=== PATIENT | female | born 1950 | race Caucasian/White ===

== ENCOUNTER 2024-08-09 13:14 | Outpatient (AMB) | payer MEDICARE, SELFPAY ==
--- NOTE | 2024-08-09 13:17 | A.OFFPC_ITS ---
Vital Signs 08/09/24 13:19 Height 5 ft 1.81 in Weight 149 lb 4 oz BMI 27.5 BP 120/64 Blood Pressure Location Lt brachial Position Sitting Pulse 101 H Pulse Source Pulse Oximeter Temp 97.3 F Temp Source Temporal Artery Scan Pulse Oximetry (%) 96 Oxygen Delivery Method Room Air Intake Visit Reasons: establish care Intake Note: Patient is a new patient here to establish care for Anxiety, Hx HTN, Cholesterol. Transferring care from Dr Bowen ([facility]) . Medical records have been requested and have not received. Requesting lab order. Model Maker Required: No General Merchandise Salesperson: Not Required per policy Accompanied by: Self / Same As Patient Allergies No Known Allergies Allergy (Verified 08/09/24 13:37) Medication List - Last Reconciled 08/09/24 by Radha Arango PA-C citalopram 40 mg PO DAILY Tobacco use date assessed: 08/09/24 Fall risk assessment: No Falls in past year Last assessed Fall Risk: 08/09/24 Dental Screening Dental Screen Date: 08/09/24 Did you have a dental visit in the last 12 months?: Yes Did you have a dental problem in the last 6 months where you did not have access to dental care?: No Was dental information given to patient?: Patient has dentist HPI establish care HPI Details 74 year old female coming to the office for the first time. She has a history of anxiety managed with citalopram, mild hypertension with generally normal readings, and previous treatment with Mounjaro resulting in adverse side effects. She expresses interest at re-initiating Mounjaro at a lower dose. She also monitors her blood pressure at home, with occasional high readings attributed to unreliable equipment. Despite seasonal allergies and occupational headaches, the patient stays active through work and social activities. mammogram: due colonoscopy: unsure of last date DEXA: due [facility] Medical History H/O mammogram Surgical History History of tooth extraction H/O tubal ligation History of partial colectomy H/O release of tendon H/O colonoscopy Family History Mother Cancer of lung Neoplasm of bone Father Cancer Brother High blood cholesterol Paternal Grandfather Cancer Social History Housing: House Alcohol intake: never Patient Tobacco Use Status: Former Tobacco user e-Cigarette/Vaping Use: Never Used Second Hand Smoke Exposure: Yes service: No Current occupational status: employed Current occupation: Nurse Cognitive needs: No Hearing needs: No Vision needs: Yes (Reading glasses) Questionnaire PHQ-9 Over the last 2 weeks, how often have you been bothered by any of the following problems? 1. Little interest or pleasure in doing things: not at all 2. Feeling down, depressed, or hopeless: not at all 3. Trouble falling or staying asleep, or sleeping too much: not at all 4. Feeling tired or having little energy: several days 5. Poor appetite or overeating: not at all 6. Feeling bad about yourself - or that you are a failure or have let yourself or your family down: not at all 7. Trouble concentrating on things, such as reading the newspaper or watching television: not at all 8. Moving or speaking so slowly that other people could have noticed. Or the opposite - being so fidgety or restless that you have been moving around a lot more than usual: not at all 9. Thoughts that you would be better off or of hurting yourself in some way: not at all Total score: 1 Depression Screening Interpretation: Positive Depression Screening Follow-up: Existing condition and In treatment Depression Screening Done: Yes Source: Developed by Drs. Leo Vargas, Nena Chacko, Vladislav Rivera and colleagues, with an educational nilson from [employer]. Thrive Questionnaire Date Thrive assessed: 08/09/24 I am a: Patient What is your living situation today?: I have a steady place to live Within the past 12 months, did the food you bought not last and you didn't have the money to get more?: Never true Within the past 12 months, did you worry whether your food would run out before you got money to buy more?: Never true Do you have trouble paying for medicines?: No Do you have trouble getting transportation to medical appointments?: No Do you have trouble paying your heating and electricity bill?: No Do you have trouble taking care of your child, family member or friend?: No Do you have trouble with day-to-day activities such as bathing, preparing meals, shopping, managing finances, etc.?: No Are you currently unemployed and looking for a job?: No Are you interested in more education?: I choose not to answer this question Please select the resources that you would like help with: None Currently or been in a relationship where the following occur: No concerns reported THRIVE Score: 0 AUDIT C Alcohol Use Questionnaire (AUDIT-C) 1. How often do you have a drink containing alcohol?: Never 3. How often do you have six or more drinks on one occasion?: Never Total Score: 0 LUANA-7 AMB Questionnaire LUANA-7 Date LUANA - 7 assessed: 08/09/24 Feeling nervous, anxious, or on edge: 0 = Not at all Not being able to stop or control worryin = Not at all Worrying too much about different things: 0 = Not at all Trouble relaxin = Not at all Being so restless that it is hard to sit still: 0 = Not at all Becoming easily annoyed or irritable: 0 = Not at all Feeling afraid as if something awful might happen: 0 = Not at all Total LUANA-7 score (0-4 normal; 5-9 mild; 10-14 moderate; 15-21 severe): 0 Source: Developed by Drs. Leo Vargas, Nena Chacko, Vladislav Rivera and colleagues, with an educational nilson from [employer]. LUANA-7 Assessment Billing LUANA-7 Assessment Tool: LUANA-7 Assessment 78321 Review of Systems Const Denies body aches, Denies chills, Denies fever(s), Reports headache(s) and Denies poor appetite Eyes Reports no additional complaints ENT Denies dizziness and Reports headache(s) Card Denies chest pain, Denies lightheadedness and Denies dyspnea Resp Denies cough and Denies dyspnea GI Denies abdominal pain, Denies nausea and Denies vomiting Reports no additional complaints Musc Reports no additional complaints and Denies abnormal gait Skin/Breast Reports system reviewed and no additional complaints, except as documented Neuro Denies abnormal gait, Denies dizziness and Reports headache(s) Psych Reports no additional complaints Physical exam (Primary Care) Vital Signs: Last Vital Signs Temp 97.3 F 08/09/24 13:19 Pulse 101 H 08/09/24 13:19 BP 120/64 08/09/24 13:19 Pulse Ox 96 08/09/24 13:19 Oxygen Delivery Method Room Air 08/09/24 13:19 BMI result Body Mass Index 27.5 Tobacco/Smoking Status: Tobacco use Status Tobacco use date assessed 08/09/24 08/09/24 13:19 Patient Tobacco Use Status Former Tobacco user 08/09/24 13:26 e-Cigarette/Vaping Use Never Used 08/09/24 13:19 PHQ-9: PHQ-9 Score PHQ-9: Total score 1 08/09/24 14:26 Depression Screening Interpretation: Positive Depression Screening Follow-up: Existing condition and In treatment Thrive Assessment: Date of Thrive Assessment Date Thrive assessed 08/09/24 08/09/24 13:19 Currently or been in a relationship where the following occur: No concerns reported Const General: cooperative, healthy appearing, comfortable and no acute distress Orientation/consciousness: patient oriented x3 HENMT Head: Yes normocephalic Ears: hearing grossly normal bilaterally General nose exam: Normal external nose present Eyes General: appearance normal, both eyes and all related structures Conjunctivae: conjunctivae normal Neck Neck: Yes full ROM and Yes no lymphadenopathy Resp Effort & Inspection: normal respiratory effort Auscultation: clear to auscultation bilaterally, no crackles, no rales, no rhonchi and no wheezes Cardio Rate: regular rate Rhythm: regular rhythm Skin General skin exam: no rashes or lesions noted Neuro General: patient oriented x3 Gait exam (Neuro): Normal gait present Extrem General: Yes normal to inspection, Yes full ROM and No edema Psych Affect: normal affect Attitude: cooperative Insight: Good insight present (Psych) Judgement: Good judgement present (Psych) Coding Level of Care Code New Pt Level 4 (01289) Diagnoses Depression F32.A Anxiety F41.9 Overweight (BMI 25.0-29.9) E66.3 Hypercholesterolemia E78.00 Hypertension I10 Insomnia G47.00 Additional Codes LUANA-7 Assessment Billing - LUANA-7 Assessment Tool: LUANA-7 Assessment 16386 ([id number]) Assessment & Plan Assessment & Plan (1) Depression: Code(s): F32.A - Depression, unspecified Category: Medical Plan: Patient does endorse history of depression. She feels her symptoms are well managed on the Citalopram at this time and is declining med adjustments or counseling at this time. (2) Anxiety: Code(s): F41.9 - Anxiety disorder, unspecified Category: Medical Plan: See above (3) Overweight (BMI 25.0-29.9): Code(s): E66.3 - Overweight Category: Medical Plan: Healthy diet and regular exercise is encouraged. Patient was previously prescribed Mounjaro by her last PCP plan to reinitiate at a lower dose. I did discuss with patient if the Mounjaro is not approved by insurance she will not be a candidate for weight management. (4) Hypercholesterolemia: Comment: hx of Atorvastatin use Code(s): E78.00 - Pure hypercholesterolemia, unspecified Category: Medical Plan: Avoid foods that are high in cholesterol such as red meat, fried foods, eggs and baked goods. Triglyceride goal of less than 150 and LDL goal of less than 130. Previously treated with the atorvastatin but has been without the medication for 1 year. Ordered for updated blood work (5) Hypertension: Code(s): I10 - Essential (primary) hypertension Category: Medical Plan: Patient previously on medical management for blood pressure and has been without for 1 year. She does monitor her blood pressures at home which have been within the normal range less than 140/90. Continue to monitor at this time. Avoid salt intake and encourage healthy diet and regular exercise. (6) Insomnia: Code(s): G47.00 - Insomnia, unspecified Category: Medical Plan: Avoid the use of caffeine close to bedtime and practice good sleep hygiene. Plan to start on Benadryl as needed for sleep. Plan The patient will continue on citalopram for anxiety management, and we will ensure blood pressure is regularly monitored with reliable equipment due to previous hypertensive readings. For weight management, the patient may trial Wegovy or Mounjaro at a lower dosage, provided insurance approves coverage. Seasonal allergies and headache management remain supportive as symptoms arise. We discussed updating the bone density scan and mammogram schedule aligning with the patient?s preventive screening timeline. The introduction of hydroxyzine as a sleep aid, considering the interaction with citalopram, was explored, although Benadryl remains an option. Regular follow-up is encouraged to assess medication efficacy, side effects, and overall health maintenance strategies. This note was constructed using voice recognition software. While every effort has been made to ensure accuracy and prekindergarten teacher, still areas may have been included sometimes these areas may affect the content or meeting of the given symptoms. Total time spent caring for the patient today was 30 minutes. This includes time spent before the visit reviewing the chart, time spent during the visit, and time spent after the visit and documentation. Patient was informed and verbally consented to the use of an ambient scribe for clinic note docu mentation during this visit. Orders: Orders Complete Blood Count Auto Diff Today Z00.00 - Encounter for general adult medical examination without abnormal findings TSH reflex Free T4 Today Z00.00 - Encounter for general adult medical examination without abnormal findings Free T4 (Free Thyroxine) Today Z00.00 - Encounter for general adult medical examination without abnormal findings B Type Natriuretic Peptide Today I10 - Essential (primary) hypertension MM tomosynthesis screening BI Today Z12.31 - Encounter for screening mammogram for malignant neoplasm of breast Comprehensive Met. Panel Today Z00.00 - Encounter for general adult medical examination without abnormal findings Vitamin B12 and Folate Today Z00.00 - Encounter for general adult medical examination without abnormal findings Vitamin D 25-OH Total Today Z00.00 - Encounter for general adult medical examination without abnormal findings Lipid Panel Today E78.00 - Pure hypercholesterolemia, unspecified Hemoglobin A1c Today Z13.1 - Encounter for screening for diabetes mellitus XR DEXA axial skeleton Today Z78.0 - Asymptomatic menopausal state Medications: New tirzepatide (Mounjaro) for 4 weeks 2.5 mg (0.5 mL) subcut QWEEK 2 mL 0RF diphenhydramine HCl (Benadryl Allergy) 25 mg PO BEDTIME PRN 30 tabs 0RF sleep
[2024-08-09 13:19] VITALS: BP 120/64; PULSE 101; TEMP 36.3; O2SAT 96; BMI 27.5
== END 2024-08-09 14:06 | disposition home or self-care (01) ==
LOC: HO.HMCH 13:15
DX: F32.A Depression, unspecified (principal); F41.9 Anxiety disorder, unspecified; E66.3 Overweight; E78.00 Pure hypercholesterolemia, unspecified; I10 Essential (primary) hypertension; G47.00 Insomnia, unspecified

== ENCOUNTER → 2024-08-09 13:14 | Outpatient (BNVA) | payer MEDICARE, SELFPAY | DX: F32.A Depression, unspecified (principal); F41.9 Anxiety disorder, unspecified; E78.00 Pure hypercholesterolemia, unspecified; G47.00 Insomnia, unspecified; I10 Essential (primary) hypertension; E66.3 Overweight; Z68.27 Body mass index [BMI] 27.0-27.9, adult; Z71.3 Dietary counseling and surveillance | CPT/HCPCS: 96127; 99202 ==

== ENCOUNTER 2024-08-11 06:12 | Outpatient (REF) | payer MEDICARE, SELFPAY ==
[2024-08-11 06:28] LABS: MANUAL DIFF FLAG NO
[2024-08-11 07:19] LABS: Estimated Average Glucose 111 mg/dL; Hemoglobin A1C 113.7736 umol/L; Hemoglobin A1c % 5.5 % (<6.0); Total Hemoglobin (HGBA1C) 3127.4226 umol/L
[2024-08-11 07:24] LABS: Basophils Absolute Auto 0.1 X10*3/uL (0.0-0.2); Eosinophils Absolute Auto 0.4 X10*3/uL (0.0-0.4); Eosinophils Percent Auto 6.9 % (0-4); Hematocrit 36.9 % (37.0-47.0); Hemoglobin 11.8 g/dl (12.0-16.0); Imm Gran Abs Auto 0.01 X10*3/uL (0.00-0.03); Imm Gran Pct Auto 0.2 % (0.0-0.4); Lymphocytes Absolute Auto 1.9 X10*3/uL (1.2-4.9); Lymphocytes Percent Auto 37.1 % (20-40); Mean Corpuscular Hemoglobin 28.3 pg (27.0-33.0); Mean Corpuscular Volume 88.5 fL (80.0-98.0); Mean Platelet Volume 10.1 fL (9.4-12.3); Monocytes Absolute Auto 0.4 X10*3/uL (0.1-1.2); Monocytes Percent Auto 7.9 % (2-11); Neutrophils Absolute Auto 2.4 x10*3/uL (2.0-8.3); Neutrophils Percent Auto 46.9 % (45-73); Platelet Count 243 X10*3/uL (160-400); Red Blood Count 4.17 X10*6/uL (4.20-5.50); Red Cell Distribution Width 13.2 % (11.0-16.0); White Blood Count 5.1 X10*3/uL (4.8-10.8)
[2024-08-11 07:48] LABS: B Type Natriuretic Peptide 20 pg/mL (<100)
[2024-08-11 07:57] LABS: Alanine Aminotransferase 15 U/L (0-31); Alkaline Phosphatase 67 U/L (39-117); Anion Gap 11 (12-20); Aspartate Amino Transferase 20 U/L (5-31); Bilirubin Total 0.3 mg/dL (0.0-1.0); Blood Urea Nitrogen 16 mg/dL (9-16); Calcium 9.2 mg/dL (8.4-10.2); Carbon Dioxide 28 mmol/L (22-29); Chloride 106 mmol/L (96-108); Cholesterol 282 mg/dL (<200); Estimated Glomerular Filt Rate > 60; Glucose Random 87 mg/dL (60-115); HDL Cholesterol 61 mg/dL (>40); LDL Cholesterol Calculated 197 mg/dL (<100); Potassium 3.8 mmol/L (3.3-5.1); Sodium 141 mmol/L (135-145); Total Protein 6.4 g/dL (6.5-8.0); Triglycerides 121 mg/dL (<150)
[2024-08-11 08:16] LABS: Free T4 (Free Thyroxine) 0.89 ng/dL (0.71-1.85); TSH reflex Free T4 3.96 uIU/mL (0.32-4.0); Vitamin D 25-OH Total 26.6 ng/mL (>30)
[2024-08-11 08:19] LABS: Folate 11.6 ng/mL (> or = 4.0); Vitamin B12 206 pg/mL (200-900)
== END 2024-08-11 06:13 | disposition home or self-care (01) ==
LOC: HO.LAB 06:12
DX: Z00.00 Encounter for general adult medical examination without abnormal findings (principal); I10 Essential (primary) hypertension; E78.00 Pure hypercholesterolemia, unspecified; Z13.1 Encounter for screening for diabetes mellitus
CPT/HCPCS: 36415; 80053; 80061; 82306; 82607; 82746; 83036; 83880; 84439; 84443; 85025

== ENCOUNTER 2024-12-06 06:02 | Outpatient (REF) | payer MEDICARE, SELFPAY ==
--- NOTE | ~2024-12-06 | XR_ITS ---
EXAMINATION: XR CHEST CLINICAL INFORMATION: R06.02 - Shortness of breath COMPARISON: None available. TECHNIQUE: 2 views of the chest were obtained. FINDINGS: The cardiac, hilar, and mediastinal contours are normal. The lungs are mildly hyperaerated, however clear bilaterally. There is no pneumothorax or pleural effusion. There is no focal osseous or soft tissue abnormality. XR/XR chest 2V IMPRESSION: No active pulmonary disease. Electronically signed by: Aubrey Conrad MD 12/06/2024 12:07 PM EDT
[2024-12-06 06:17] LABS: MANUAL DIFF FLAG NO
[2024-12-06 07:45] LABS: Hematocrit 38.6 % (37.0-47.0); Hemoglobin 12.5 g/dl (12.0-16.0); Imm Gran Abs Auto 0.01 X10*3/uL (0.00-0.03); Imm Gran Pct Auto 0.2 % (0.0-0.4); Lymphocytes Absolute Auto 2.2 X10*3/uL (1.2-4.9); Mean Corpuscular HGB Conc 32.4 g/dl (31.0-35.0); Mean Corpuscular Hemoglobin 28.5 pg (27.0-33.0); Mean Corpuscular Volume 88.1 fL (80.0-98.0); NRBC Abs Auto 0.000 X10*3/uL (0.0-0.012); NRBC Pct Auto 0.0 /100WBC (0.0-0.2); Platelet Count 249 X10*3/uL (160-400); Red Blood Count 4.38 X10*6/uL (4.20-5.50); White Blood Count 6.1 X10*3/uL (4.8-10.8)
[2024-12-06 08:20] LABS: Alanine Aminotransferase 18 U/L (0-31); Albumin Level 4.3 g/dL (3.5-5.0); Alkaline Phosphatase 70 U/L (39-117); Anion Gap 13 (12-20); Aspartate Amino Transferase 25 U/L (5-31); Blood Urea Nitrogen 22 mg/dL (9-16); Calcium 9.0 mg/dL (8.4-10.2); Carbon Dioxide 28 mmol/L (22-29); Chloride 105 mmol/L (96-108); Cholesterol 282 mg/dL (<200); Estimated Glomerular Filt Rate > 60; HDL Cholesterol 65 mg/dL (>40); Iron 78 mcg/dL (30-160); Percent Iron Saturation 28 % (15-50); Potassium 3.6 mmol/L (3.3-5.1); Sodium 142 mmol/L (135-145); Total Iron Binding Capacity 283 mcg/dL (228-428); Total Protein 6.6 g/dL (6.5-8.0); Triglycerides 109 mg/dL (<150); Unsaturated Iron Binding 205 ug/dL
[2024-12-06 09:17] LABS: Folate 13.8 ng/mL (> or = 4.0); Vitamin B12 249 pg/mL (200-900)
== END 2024-12-06 06:03 | disposition home or self-care (01) ==
LOC: HO.LAB 06:02
DX: Z00.00 Encounter for general adult medical examination without abnormal findings (principal); Z23 Encounter for immunization; F33.41 Major depressive disorder, recurrent, in partial remission; F41.9 Anxiety disorder, unspecified; E78.00 Pure hypercholesterolemia, unspecified; G47.00 Insomnia, unspecified; I10 Essential (primary) hypertension; R20.0 Anesthesia of skin; R06.02 Shortness of breath; E66.3 Overweight; Z68.28 Body mass index [BMI] 28.0-28.9, adult; Z87.891 Personal history of nicotine dependence
CPT/HCPCS: 36415; 71046; 80053; 80061; 82306; 82607; 82746; 83540; 84443; 85025; 90471; 90714; 99397

== ENCOUNTER 2024-12-06 10:41 | Outpatient (AMB) | payer MEDICARE, SELFPAY ==
[2024-12-06 10:43] VITALS: BP 138/80; PULSE 94; RESP 16; TEMP 36.3; O2SAT 97; BMI 28.8
--- NOTE | 2024-12-06 10:43 | MHC.PC.OV ---
Vital Signs 12/06/24 10:43 Height 5 ft 1.81 in Weight 156 lb 8 oz BMI 28.8 BP 138/80 Blood Pressure Location Lt brachial Position Sitting Respiration 16 Pulse 94 Pulse Source Pulse Oximeter Temp 97.3 F Temp Source Temporal Artery Scan Pulse Oximetry (%) 97 Oxygen Delivery Method Room Air Intake Visit Reasons: Annual Exam Mobile Sales Consultant Required: No Accompanied by: Self / Same As Patient Allergies No Known Allergies Allergy (Verified 12/06/24 10:46) Medication List - Last Reviewed 12/06/24 by Claudia Sotomayor CMA atorvastatin 10 mg PO BEDTIME cholecalciferol (vitamin D3) 25 mcg PO DAILY citalopram 40 mg PO DAILY diphenhydramine HCl (Benadryl Allergy) 25 mg PO BEDTIME PRN Tobacco use date assessed: 12/06/24 Fall risk assessment: No Falls in past year Last assessed Fall Risk: 12/06/24 Dental Screening Dental Screen Date: 12/06/24 Did you have a dental visit in the last 12 months?: Yes Did you have a dental problem in the last 6 months where you did not have access to dental care?: No Was dental information given to patient?: Patient has dentist HPI Annual Exam HPI Details 74-year-old female with past medical history of depression, anxiety, hypertension, hypercholesterolemia, insomnia last seen 07/2024 coming in for annual exam.? Patient is scheduled for mammogram in January. Presenting with management of hyperlipidemia, peripheral neuropathy, and insomnia. The patient has been on atorvastatin, but her LDL cholesterol remains elevated at 196 mg/dL, which is above the desired level of less than 130 mg/dL. The patient reports worsening neuropathy in her feet, particularly after prolonged standing during a recent work stint. The patient experiences dyspnea on exertion, which she attributes to a previous COVID-19 infection. She does not have to stop and rest frequently but does mentioned occasional shortness of breath with prolonged walking. Denies any chest pain on exertion Mammogram: Scheduled for January DEXA: Due scheduled for January Colonoscopy: Due in the fall with [facility] Vaccinations: Due for Td will do today PFSH Medical History H/O mammogram Surgical History History of tooth extraction H/O tubal ligation History of partial colectomy H/O release of tendon H/O colonoscopy Family History Mother Cancer of lung Neoplasm of bone Father Cancer Brother High blood cholesterol Paternal Grandfather Cancer Social History Housing: House Alcohol intake: never Patient Tobacco Use Status: Former Tobacco user e-Cigarette/Vaping Use: Never Used Second Hand Smoke Exposure: Yes service: No Current occupational status: employed Current occupation: Nurse Cognitive needs: No Hearing needs: No Vision needs: Yes (Reading glasses) Questionnaire PHQ-9 Over the last 2 weeks, how often have you been bothered by any of the following problems? 1. Little interest or pleasure in doing things: not at all 2. Feeling down, depressed, or hopeless: not at all 3. Trouble falling or staying asleep, or sleeping too much: not at all 4. Feeling tired or having little energy: several days 5. Poor appetite or overeating: not at all 6. Feeling bad about yourself - or that you are a failure or have let yourself or your family down: not at all 7. Trouble concentrating on things, such as reading the newspaper or watching television: not at all 8. Moving or speaking so slowly that other people could have noticed. Or the opposite - being so fidgety or restless that you have been moving around a lot more than usual: not at all 9. Thoughts that you would be better off or of hurting yourself in some way: not at all Total score: 1 Depression Screening Interpretation: Positive Depression Screening Follow-up: Existing condition and In treatment Depression Screening Done: Yes Source: Developed by Drs. Leo Vargas, Nena Chacko, Vladislav Rivera and colleagues, with an educational nilson from [employer]. Thrive Questionnaire Date Thrive assessed: 12/06/24 I am a: Patient What is your living situation today?: I have a steady place to live Within the past 12 months, did the food you bought not last and you didn't have the money to get more?: Never true Within the past 12 months, did you worry whether your food would run out before you got money to buy more?: Never true Do you have trouble paying for medicines?: No Do you have trouble getting transportation to medical appointments?: No Do you have trouble paying your heating and electricity bill?: No Do you have trouble taking care of your child, family member or friend?: No Do you have trouble with day-to-day activities such as bathing, preparing meals, shopping, managing finances, etc.?: No Are you currently unemployed and looking for a job?: No Are you interested in more education?: I choose not to answer this question Please select the resources that you would like help with: None Currently or been in a relationship where the following occur: No concerns reported THRIVE Score: 0 AUDIT C Alcohol Use Questionnaire (AUDIT-C) 1. How often do you have a drink containing alcohol?: Never 3. How often do you have six or more drinks on one occasion?: Never Total Score: 0 LUANA-7 AMB Questionnaire LUANA-7 Date LUANA - 7 assessed: 12/06/24 Feeling nervous, anxious, or on edge: 0 = Not at all Not being able to stop or control worryin = Not at all Worrying too much about different things: 0 = Not at all Trouble relaxin = Not at all Being so restless that it is hard to sit still: 0 = Not at all Becoming easily annoyed or irritable: 0 = Not at all Feeling afraid as if something awful might happen: 0 = Not at all Total LUANA-7 score (0-4 normal; 5-9 mild; 10-14 moderate; 15-21 severe): 0 Source: Developed by Drs. Leo Vargas, Nena Chacko, Vladislav Rivera and colleagues, with an educational nilson from [employer]. Review of Systems Const Denies body aches, Denies fatigue, Denies fever(s), Denies frequent falls, Reports headache(s) and Denies weakness Eyes Reports no additional complaints and Denies change in vision ENT Denies dysphagia, Denies dizziness, Denies facial pain, Reports headache(s), Denies nasal congestion and Denies odynophagia Card Denies chest pain, Denies syncope, Denies irregular heart rhythm, Denies leg edema, Denies lightheadedness, Denies dyspnea and Reports dyspnea on exertion (w/ prolonged exertion ) Resp Denies cough, Denies dyspnea and Reports dyspnea on exertion (w/ prolonged exertion ) GI Denies abdominal pain, Denies constipation, Denies dysphagia, Denies dyspepsia, Denies heartburn, Denies diarrhea, Denies nausea, Denies odynophagia and Denies vomiting Denies urinary frequency, Denies dysuria, Denies urinary hesitancy and Denies urinary urgency Musc Denies back pain and Denies myalgias Skin/Breast Reports system reviewed and no additional complaints, except as documented Neuro Reports as per HPI, Denies dizziness, Denies syncope, Denies frequent falls, Reports headache(s) and Denies weakness Psych Reports no additional complaints Endo Denies fatigue Physical exam (Primary Care) Vital Signs: Last Vital Signs Temp 97.3 F 12/06/24 10:43 Pulse 94 12/06/24 10:43 Resp 16 12/06/24 10:43 BP 138/80 12/06/24 10:43 Pulse Ox 97 12/06/24 10:43 Oxygen Delivery Method Room Air 12/06/24 10:43 BMI result Body Mass Index 28.8 Tobacco/Smoking Status: Tobacco use Status Tobacco use date assessed 12/06/24 12/06/24 10:47 Patient Tobacco Use Status Former Tobacco user 12/06/24 10:44 e-Cigarette/Vaping Use Never Used 12/06/24 10:44 PHQ-9: PHQ-9 Score PHQ-9: Total score 1 12/06/24 11:21 Depression Screening Interpretation: Positive Depression Screening Follow-up: Existing condition and In treatment Thrive Assessment: Date of Thrive Assessment Date Thrive assessed 12/06/24 12/06/24 10:46 Currently or been in a relationship where the following occur: No concerns reported Const General: cooperative, healthy appearing, comfortable and no acute distress Orientation/consciousness: patient oriented x3 HENMT Head: Yes normocephalic Ears: hearing grossly normal bilaterally, external ears normal, TM's normal bilaterally and EAC's normal General nose exam: Normal external nose present Face and sinus: Yes normal facial exam and Yes sinuses nontender Mouth: Normal oral and palatal mucosa present and tongue normal Throat: Yes posterior oropharynx normal Eyes General: appearance normal, both eyes and all related structures Conjunctivae: conjunctivae normal Pupils: Equal, round and reactive pupils present EOM: EOMs intact bilaterally and No Nystagmus present Neck Neck: Yes normal visual inspection, Yes full ROM and Yes no lymphadenopathy Chest Chest palpation & inspection: normal inspection of the chest Resp Effort & Inspection: normal respiratory effort Auscultation: clear to auscultation bilaterally, no crackles, no rales, no rhonchi, no wheezes and breath sounds present Cardio Rate: regular rate Rhythm: regular rhythm Peripheral pulses: radial pulses present and dorsalis pedis present GI Inspection: Yes normal to inspection and No Abdominal wall edema Palpation (GI): Soft to palpation, not firm and nontender Auscultation: normal bowel sounds Rectal Exam - Female: deferred General: Yes no CVA tenderness Back/Spine/Pelvis Back: no CVA tenderness Skin General skin exam: no rashes or lesions noted Neuro Other: Monofilament test revealing intact but decreased sensation in the balls of bilateral feet when compared to the rest of the foot General: patient oriented x3 Cranial nerves: Yes Equal, round and reactive pupils present, Yes Midline tongue present, Yes Ability to bilaterally elevate shoulders present and No Nystagmus present Gait exam (Neuro): Normal gait present Extrem General: Yes normal to inspection, Yes full ROM, No no pedal edema and No edema Psych Speech and movement: Normal speech and movement present Affect: normal affect Insight: Good insight present (Psych) Judgement: Good judgement present (Psych) Immunizations Tenivac (PF) 5 Lf unit-2 Lf unit/0.5 mL intramuscular syringe Performing Provider: Radha Arango PA-C [facility] Administered by: OWEN Hendrix on 12/06/24 11:21 Dose Route Admin Location Dispensed Lot Number Expiration Date UTC Security Alarm Technician 0.5 mL IM Left Deltoid 0.5 mL [id number] 07/18/26 [id number] [employer] Total Dispensed Waste 0.5 mL 0 % VIS Given Date VIS Provided VIS Publication Date 12/06/24 Single Vaccine 20 Eligibility Eligibility Date Funding Source Not [facility] Eligible 12/06/24 Private Coding Level of Care Code Est Pt Prev Care >65y(55161) Diagnoses Annual physical exam Z00.00 Recurrent major depressive disorder, in partial remission F33.41 Active/Remission status: in partial remission Depression Type: major depressive disorder Major depression recurrence: recurrent Anxiety F41.9 Overweight (BMI 25.0-29.9) E66.3 Hypercholesterolemia E78.00 Hypertension I10 Insomnia G47.00 Numbness in feet R20.0 Shortness of breath R06.02 Assessment & Plan Assessment & Plan (1) Annual physical exam: Code(s): Z00.00 - Encounter for general adult medical examination without abnormal findings Category: Medical Plan: Patient is up-to-date on all recommended routine screenings vaccinations for her age. Her tetanus was due today and has been updated in the office. Blood work is up-to-date and has been reviewed with the patient today. (2) Depression: Code(s): F32.A - Depression, unspecified Category: Medical Qualifiers: Active/Remission status: in partial remission Depression Type: major depressive disorder Major depression recurrence: recurrent Qualified Code(s): F33.41 - Major depressive disorder, recurrent, in partial remission Plan: Patient does endorse history of depression. She feels her symptoms are well managed on the Citalopram at this time and is declining med adjustments or counseling at this time. (3) Anxiety: Code(s): F41.9 - Anxiety disorder, unspecified Category: Medical Plan: See above (4) Overweight (BMI 25.0-29.9): Code(s): E66.3 - Overweight Category: Medical Plan: Healthy diet and regular exercise is encouraged. Patient was previously prescribed Mounjaro by her last PCP plan to reinitiate at a lower dose. I did discuss with patient if the Mounjaro is not approved by insurance she will not be a candidate for weight management. (5) Hypercholesterolemia: Comment: hx of Atorvastatin use Code(s): E78.00 - Pure hypercholesterolemia, unspecified Category: Medical Plan: Avoid foods that are high in cholesterol such as red meat, fried foods, eggs and baked goods. Triglyceride goal of less than 150 and LDL goal of less than 130. PLan to increase Lipitor at this time as LDL is still elevated. (6) Hypertension: Code(s): I10 - Essential (primary) hypertension Category: Medical Plan: Blood pressure well managed at this time without the use of medication. Continue to monitor blood pressures at home (7) Insomnia: Code(s): G47.00 - Insomnia, unspecified Category: Medical Plan: Avoid the use of caffeine close to bedtime and practice good sleep hygiene. Plan to start on Benadryl as needed for sleep. (8) Numbness in feet: Code(s): R20.0 - Anesthesia of skin Category: Medical Plan: Patient complaining of numbness in the balls of the feet which started after multiple 12 hour shifts at her job. Her vitamin B12 is mildly plan to start on supplement. I do believe it is likely related to prolonged standing advised patient to use compression stockings and supportive shoes with insoles. She agrees to follow up if symptoms do not improve. (9) Shortness of breath: Code(s): R06.02 - Shortness of breath Category: Medical Plan: Patient complaining of shortness of breath on exertion has not been diagnosed with asthma or COPD in the past. She denies any chest pain with exertion. Plan to obtain chest x-ray and pulmonary function test for further evaluation. Plan The plan includes increasing the dose of atorvastatin to address the elevated LDL cholesterol levels, as the current low dose is insufficient. A pulmonary function test and chest x-ray have been ordered to further evaluate the patient's dyspnea on exertion, which may be related to a previous COVID-19 infection. For the peripheral neuropathy, the patient is advised to use supportive shoes and insoles, and to continue with vitamin supplementation, which may help alleviate symptoms. The patient will continue using citalopram for depression management, as it is currently effective. A tetanus vaccination was administered during the visit, as it was due. This note was constructed using voice recognition software. While every effort has been made to ensure accuracy and account receivable associate, still areas may have been included sometimes these areas may affect the content or meeting of the given symptoms. Total time spent caring for the patient today was 30 minutes. This includes time spent before the visit reviewing the chart, time spent during the visit, and time spent after the visit and documentation. Patient was informed and verbally consented to the use of an ambient scribe for clinic note documentation during this visit. Orders: Orders PFT pulmonary function test Today R06.02 - Shortness of breath Td Immunization Today Z23 - Encounter for immunization Lipid Panel 3 Months E78.00 - Pure hypercholesterolemia, unspecified XR chest 2V Today R06.02 - Shortness of breath Medications: New atorvastatin (Lipitor) 20 mg PO BEDTIME 90 tabs 1RF Discontinued atorvastatin Discontinued Reason: Patient no longer taking 10 mg PO BEDTIME 90 tabs 1RF
== END 2024-12-06 11:24 | disposition home or self-care (01) ==
DX: Z00.00 Encounter for general adult medical examination without abnormal findings (principal); F33.41 Major depressive disorder, recurrent, in partial remission; F41.9 Anxiety disorder, unspecified; E66.3 Overweight; E78.00 Pure hypercholesterolemia, unspecified; I10 Essential (primary) hypertension; G47.00 Insomnia, unspecified; R20.0 Anesthesia of skin; R06.02 Shortness of breath; Z23 Encounter for immunization

== ENCOUNTER → 2024-12-06 11:36 | Outpatient (BNV) | payer MEDICARE, SELFPAY | PROVIDERS: Visit Provider Radiology Diagnostic Radiology | DX: R06.02 Shortness of breath (principal) | CPT/HCPCS: 71046 ==

== ENCOUNTER → 2025-02-06 11:00 | Outpatient (BNV) | payer MEDICARE, SELFPAY | PROVIDERS: Visit Provider Radiology Diagnostic Radiology | DX: E28.39 Other primary ovarian failure (principal) | CPT/HCPCS: 77080 ==

== ENCOUNTER 2025-02-06 11:03 | Outpatient (REF) | payer MEDICARE, SELFPAY ==
--- NOTE | ~2025-02-06 | MM_ITS ---
EXAMINATION: MM SCREENING DIGITAL BREAST TOMOSYNTHESIS, BILATERAL CLINICAL INFORMATION: Screening. Asymptomatic. COMPARISON: Mammography: Comparison is made with available priors TECHNIQUE: Digital breast mammography with tomosynthesis is performed in both the craniocaudal and mediolateral oblique views along with computer-aided detection (CAD). FINDINGS: There are scattered areas of fibroglandular density. There are no significant masses, abnormal calcifications, or other abnormalities. MM/MM tomosynthesis screening BI IMPRESSION: No mammographic evidence of malignancy. ASSESSMENT: BI-RADS Category 1: Negative RECOMMENDATION: Routine annual mammography screening. 1 year F/U This examination should not preclude the clinical evaluation of a suspicious palpable abnormality. This patient's information was entered into a reminder system with a target due date for their next mammogram. Electronically signed by: Dian Johnston DO 02/12/2025 03:59 PM EDT
--- NOTE | ~2025-02-06 | MM_ITS ---
EXAMINATION: DXA BONE DENSITY AXIAL HISTORY: Z78.0 - Asymptomatic menopausal state TECHNIQUE: [employer] Dual energy absorptiometry (DEXA) of the lumbar spine, total left hip, and femoral neck was performed. COMPARISON: There are no prior studies for comparison. FINDINGS: The bone mineral density of the lumbar spine is 1.035 g/cm2, corresponding to a T-score of -1.1, and a Z-score of 0.4. This is indicative of osteopenia. The bone mineral density of the left total hip is 0.849 g/cm2, corresponding to a T-score of -1.3, and a Z-score of 0.2. This is indicative of osteopenia. The bone mineral density of the left femoral neck is 0.736 g/cm2, corresponding to a T-score of -2.2, and a Z-score of -0.5. This is indicative of osteopenia. FRACTURE RISK: The FRAX index suggests a risk of major osteoporotic fracture of 13.4%, and of hip fracture 3.3%. MM/XR DEXA axial skeleton IMPRESSION: Based on bone mineral density, and according to World Health Organization (WHO) criteria, the diagnosis is consistent with osteopenia. Statistically, 68% of repeat scans fall within 1 SD (+/- 0.010 g/cm2 for AP spine L1-L4) and 1 SD (+/- 0.012 g/cm2 for femur total) FRAX is a trademark of the [employer] [place] [facility] Met[employer] Disease, a World Health Organization (WHO) Collaborating Center. Electronically signed by: Leo Davis MD 02/06/2025 11:24 AM EDT
== END 2025-02-06 11:04 | disposition home or self-care (01) ==
LOC: HO.MAMMO 11:03
DX: Z12.31 Encounter for screening mammogram for malignant neoplasm of breast (principal); Z13.820 Encounter for screening for osteoporosis; Z78.0 Asymptomatic menopausal state
CPT/HCPCS: 77063; 77067; 77080

== ENCOUNTER 2025-03-13 11:14 | Outpatient (AMB) | payer MEDICARE, SELFPAY ==
--- NOTE | 2025-03-13 11:17 | A.OFFPC_ITS ---
Vital Signs 03/13/25 11:18 Height 5 ft 1.81 in Weight 146 lb 4 oz BMI 26.9 BP 100/78 Blood Pressure Location Lt brachial Position Sitting Pulse 112 H Pulse Source Pulse Oximeter Temp 98.1 F Temp Source Temporal Artery Scan Pulse Oximetry (%) 98 Oxygen Delivery Method Room Air Intake Visit Reasons: f/u [employer] Required: No Accompanied by: Self / Same As Patient Allergies No Known Allergies Allergy (Verified 03/13/25 11:52) Medication List - Last Reconciled 03/13/25 by Radha Arango PA-C atorvastatin (Lipitor) 20 mg PO BEDTIME cholecalciferol (vitamin D3) 25 mcg PO DAILY citalopram 40 mg PO DAILY diphenhydramine HCl (Benadryl Allergy) 25 mg PO BEDTIME PRN Tobacco use date assessed: 12/06/24 Fall risk assessment: No Falls in past year Last assessed Fall Risk: 12/06/24 Dental Screening Dental Screen Date: 12/06/24 Did you have a dental visit in the last 12 months?: Yes Did you have a dental problem in the last 6 months where you did not have access to dental care?: No Was dental information given to patient?: Patient has dentist HPI f/u HLD HPI Details 74-year-old female with past medical his tory of depression, anxiety, hypertension, hypercholesterolemia, insomnia last seen 11/2024 coming in for follow up. Patient tells us today she is feeling generally well. The numbness and tingling has continued in the feet and is also in the hands on occasion. She does have nighttime wrist splints that she wears on occasion. She does not want an EMG for symptoms. The numbness in her feet has improved with compression stockings, vibration pad and B12 supplement. She is interested in Wegov[facility] and is requesting a paper prescription to be filled through online pharmacy. [facility] Medical History H/O mammogram Surgical History History of tooth extraction H/O tubal ligation History of partial colectomy H/O release of tendon H/O colonoscopy Family History Mother Cancer of lung Neoplasm of bone Father Cancer Brother High blood cholesterol Paternal Grandfather Cancer Social History Housing: House Alcohol intake: never Patient Tobacco Use Status: Former Tobacco user e-Cigarette/Vaping Use: Never Used Second Hand Smoke Exposure: Yes service: No Current occupational status: employed Current occupation: Nurse Cognitive needs: No Hearing needs: No Vision needs: Yes (Reading glasses) Questionnaire PHQ-9 Over the last 2 weeks, how often have you been bothered by any of the following problems? 1. Little interest or pleasure in doing things: not at all 2. Feeling down, depressed, or hopeless: not at all 3. Trouble falling or staying asleep, or sleeping too much: not at all 4. Feeling tired or having little energy: several days 5. Poor appetite or overeating: not at all 6. Feeling bad about yourself - or that you are a failure or have let yourself or your family down: not at all 7. Trouble concentrating on things, such as reading the newspaper or watching television: not at all 8. Moving or speaking so slowly that other people could have noticed. Or the opposite - being so fidgety or restless that you have been moving around a lot more than usual: not at all 9. Thoughts that you would be better off or of hurting yourself in some way: not at all Total score: 1 Depression Screening Interpretation: Positive Depression Screening Follow-up: Existing condition and In treatment Depression Screening Done: Yes Source: Developed by Drs. Leo Vargas, Nena Chacko, Vladislav Rivera and colleagues, with an educational nilson from [employer]. Thrive Questionnaire Date Thrive assessed: 05/16/24 I am a: Patient What is your living situation today?: I have a steady place to live Within the past 12 months, did the food you bought not last and you didn't have the money to get more?: Never true Within the past 12 months, did you worry whether your food would run out before you got money to buy more?: Never true Do you have trouble paying for medicines?: No Do you have trouble getting transportation to medical appointments?: No Do you have trouble paying your heating and electricity bill?: No Do you have trouble taking care of your child, family member or friend?: No Do you have trouble with day-to-day activities such as bathing, preparing meals, shopping, managing finances, etc.?: No Are you currently unemployed and looking for a job?: No Are you interested in more education?: I choose not to answer this question Please select the resources that you would like help with: None Currently or been in a relationship where the following occur: No concerns reported THRIVE Score: 0 AUDIT C Alcohol Use Questionnaire (AUDIT-C) 1. How often do you have a drink containing alcohol?: Never 3. How often do you have six or more drinks on one occasion?: Never Total Score: 0 LUANA-7 AMB Questionnaire LUANA-7 Date LUANA - 7 assessed: 12/06/24 Feeling nervous, anxious, or on edge: 0 = Not at all Not being able to stop or control worryin = Not at all Worrying too much about different things: 0 = Not at all Trouble relaxin = Not at all Being so restless that it is hard to sit still: 0 = Not at all Becoming easily annoyed or irritable: 0 = Not at all Feeling afraid as if something awful might happen: 0 = Not at all Total LUANA-7 score (0-4 normal; 5-9 mild; 10-14 moderate; 15-21 severe): 0 Source: Developed by Drs. Leo Vargas, Nena Chacko, Vladislav Rivera and colleagues, with an educational nilson from [employer]. Review of Systems Const Denies body aches, Denies chills, Denies fever(s), Denies headache(s) and Denies poor appetite Eyes Reports no additional complaints ENT Denies dysphagia, Denies dizziness, Denies headache(s) and Denies odynophagia Card Denies chest pain, Denies syncope, Denies edema, Denies irregular heart rhythm, Denies lightheadedness and Denies dyspnea Resp Denies cough and Denies dyspnea GI Denies abdominal pain, Denies constipation, Denies dysphagia, Denies diarrhea, Denies nausea, Denies odynophagia and Denies vomiting Reports no additional complaints Musc Reports no additional complaints and Denies abnormal gait Skin/Breast Reports system reviewed and no additional complaints, except as documented Neuro Denies abnormal gait, Denies dizziness, Denies syncope and Denies headache(s) Psych Reports no additional complaints Physical exam (Primary Care) Vital Signs: Last Vital Signs Temp 98.1 F 03/13/25 11:18 Pulse 112 H 03/13/25 11:18 BP 100/78 03/13/25 11:18 Pulse Ox 98 03/13/25 11:18 Oxygen Delivery Method Room Air 03/13/25 11:18 BMI result Body Mass Index 26.9 Tobacco/Smoking Status: Tobacco use Status Tobacco use date assessed 12/06/24 03/13/25 11:24 Patient Tobacco Use Status Former Tobacco user 03/13/25 11:24 e-Cigarette/Vaping Use Never Used 03/13/25 11:24 PHQ-9: PHQ-9 Score PHQ-9: Total score 1 03/13/25 11:51 Depression Screening Interpretation: Positive Depression Screening Follow-up: Existing condition and In treatment Thrive Assessment: Date of Thrive Assessment Date Thrive assessed 05/16/24 03/13/25 11:24 Currently or been in a relationship where the following occur: No concerns reported Const General: cooperative, healthy appearing, comfortable and no acute distress Orientation/consciousness: patient oriented x3 HENMT Head: Yes normocephalic Ears: hearing grossly normal bilaterally General nose exam: Normal external nose present Eyes General: appearance normal, both eyes and all related structures Conjunctivae: conjunctivae normal Neck Neck: Yes full ROM and Yes no lymphadenopathy Resp Effort & Inspection: normal respiratory effort Auscultation: clear to auscultation bilaterally, no crackles, no rales, no rhonchi and no wheezes Cardio Rate: regular rate Rhythm: regular rhythm Skin General skin exam: no rashes or lesions noted Neuro General: patient oriented x3 Gait exam (Neuro): Normal gait present Extrem General: Yes normal to inspection, Yes full ROM and No edema Psych Affect: normal affect Attitude: cooperative Insight: Good insight present (Psych) Judgement: Good judgement present (Psych) Coding Level of Care Code Est Pt Level 3 (01455) Diagnoses Recurrent major depressive disorder, in partial remission F33.41 Active/Remission status: in partial remission Depression Type: major depressive disorder Major depression recurrence: recurrent Overweight (BMI 25.0-29.9) E66.3 Hypercholesterolemia E78.00 Hypertension I10 Insomnia G47.00 Numbness in feet R20.0 Shortness of breath R06.02 Osteopenia M85.80 Assessment & Plan Assessment & Plan (1) Depression: Code(s): F32.A - Depression, unspecified Category: Medical Qualifiers: Active/Remission status: in partial remission Depression Type: major depressive disorder Major depression recurrence: recurrent Qualified Code(s): F33.41 - Major depressive disorder, recurrent, in partial remission Plan: Patient does endorse history of depression. She feels her symptoms are well managed on the Citalopram at this time and is declining med adjustments or counseling at this time. (2) Overweight (BMI 25.0-29.9): Code(s): E66.3 - Overweight Category: Medical Plan: Healthy diet and regular exercise is encouraged. We will go we prescription was given however I did discuss with the patient possible side effects. She will follow up in 4 months or sooner as needed. Plan to continue to monitor blood work (3) Hypercholesterolemia: Comment: hx of Atorvastatin use Code(s): E78.00 - Pure hypercholesterolemia, unspecified Category: Medical Plan: Avoid foods that are high in cholesterol such as red meat, fried foods, eggs and baked goods. Triglyceride goal of less than 150 and LDL goal of less than 130. Reminded about blood work. (4) Hypertension: Code(s): I10 - Essential (primary) hypertension Category: Medical Plan: Blood pressure well managed at this time without the use of medication. Continue to monitor blood pressures at home (5) Insomnia: Code(s): G47.00 - Insomnia, unspecified Category: Medical Plan: Avoid the use of caffeine close to bedtime and practice good sleep hygiene. (6) Numbness in feet: Code(s): R20.0 - Anesthesia of skin Category: Medical Plan: Symptoms have improved with vibration pad, B12 supplement and compression socks. Discussed emg which was declined today. Follow up as needed for this concern. (7) Shortness of breath: Code(s): R06.02 - Shortness of breath Category: Medical Plan: Patient complaining of shortness of breath on exertion has not been diagnosed with asthma or COPD in the past. She denies any chest pain with exertion. CXR was negative awaiting PFT. (8) Osteopenia: Code(s): M85.80 - Other specified disorders of bone density and structure, unspecified site Category: Medical Plan: Recommend increasing vitamin D and calcium supplement. She will be due for bone density every 2 years. Plan This note was constructed using voice recognition software. While every effort has been made to ensure accuracy and news department intern, still areas may have been included sometimes these areas may affect the content or meeting of the given symptoms. Total time spent caring for the patient today was 30 minutes. This includes time spent before the visit reviewing the chart, time spent during the visit, and time spent after the visit and documentation. Patient was informed and verbally consented to the use of an ambient scribe for clinic note documentation during this visit. Orders: Orders Parathyroid Hormone Intact Today M85.80 - Other specified disorders of bone density and structure, unspecified site Phosphorus Today M85.80 - Other specified disorders of bone density and structure, unspecified site Medications: New semaglutide (weight loss) (Kwame) administer weeks 1 through 4 of therapy 0.25 mg (0.5 mL) subcut QWEEK 2 mL 0RF ibuprofen 800 mg PO Q8H PRN 90 tabs 0RF pain
[2025-03-13 11:18] VITALS: BP 100/78; PULSE 112; TEMP 36.7; O2SAT 98; BMI 26.9
== END 2025-03-13 12:20 | disposition home or self-care (01) ==
LOC: HO.HMCH 11:15
DX: F33.41 Major depressive disorder, recurrent, in partial remission (principal); E66.3 Overweight; E78.00 Pure hypercholesterolemia, unspecified; I10 Essential (primary) hypertension; G47.00 Insomnia, unspecified; R20.0 Anesthesia of skin; R06.02 Shortness of breath; M85.80 Other specified disorders of bone density and structure, unspecified site

== ENCOUNTER → 2025-03-13 11:14 | Outpatient (BNVA) | payer MEDICARE, SELFPAY | DX: F33.41 Major depressive disorder, recurrent, in partial remission (principal); E78.00 Pure hypercholesterolemia, unspecified; G47.00 Insomnia, unspecified; I10 Essential (primary) hypertension; R20.0 Anesthesia of skin; R06.02 Shortness of breath; M85.80 Other specified disorders of bone density and structure, unspecified site; E66.3 Overweight; Z68.26 Body mass index [BMI] 26.0-26.9, adult | CPT/HCPCS: 99212 ==